=== PATIENT | female | born 1955 | race Caucasian/White ===

== ENCOUNTER 2020-12-16 06:01 | Day surgery (SDC) | payer BC, MEDICARE ==
[~2020-12-16] VITALS: Ht 162.6 cm; Wt 66.2 kg
[2020-12-16] MEDS ORDERED: methylPREDNISolone*ACETATE* 80 MG/ML ONE (06:54)
[2020-12-16] MEDS ORDERED: BUPIVACAINE/PF 0.5% ONE (06:54)
[2020-12-16] MEDS ORDERED: EPINEPHRINE 1 MG/ML, 1ML ONE (06:54)
[2020-12-16] MEDS ORDERED: EPINEPHRINE TOPICAL SOLN 1 MG/ML, 30ML ONE (06:54)
[2020-12-16] MEDS ORDERED: methylPREDNISolone *ACETATE* 40 MG/ML ONE (06:54)
[2020-12-16] MEDS ORDERED: EREN70AU IM (06:56)
[2020-12-16] MEDS ORDERED: TAMO10TA6 PO (06:56)
[2020-12-16] MEDS ORDERED: HYDR-3248 PO (06:56)
[2020-12-16] MEDS ORDERED: TRAZ-175 PO (06:56)
[2020-12-16] MEDS ORDERED: RIZA10TA20 PO (06:56)
[2020-12-16] MEDS ORDERED: GABA300S PO (06:56)
[2020-12-16] MEDS ORDERED: SERT50TA28 PO (06:59)
[2020-12-16] MEDS ORDERED: PLEASE ENTER ALLERGIES MC SCH (07:00)
[2020-12-16] MEDS ORDERED: CHLORHEXIDINE 15 ML UDC PO ONE (07:00)
[2020-12-16] MEDS ORDERED: PLEASE ENTER HEIGHT AND WEIGHT MC SCH (07:00)
[2020-12-16] MEDS ORDERED: VANCOMYCIN PMX 1GM/200ML 200 ML IV ONE (07:00)
[2020-12-16] MEDS ORDERED: VANCOMYCIN 1,000 MG in SODIUM CHLORIDE 0.9% 100 ML IV ONE (07:00)
[2020-12-16 07:05] VITALS: BP 131/88
[2020-12-16] MEDS ORDERED: LIDOCAINE-MPF 1%, 2ML ONE (07:22)
[2020-12-16] MEDS ORDERED: FENTANYL PF 250 MCG/5ML ONE (07:45)
[2020-12-16 07:47] LABS: BASOPHILS % (AUTO) 1 % (0-1); EOSINOPHILS % (AUTO) 4 % (1-7); HCT (SEDRATE) 40.5 % (34.6-47.8); LYMPHOCYTES % (AUTO) 32 % (22-44); MEAN CORPUSCULAR HEMOGLOBIN 30.9 pg (27.0-34.8); MEAN PLATELET VOLUME 9.5 fL (7.4-10.4); MONOCYTES % (AUTO) 14 % (2-9); NEUTROPHILS % (AUTO) 50 % (42-75); PLATELET COUNT 155 x10^3/uL (130-400); RED BLOOD COUNT 4.39 x10^6/uL (3.82-5.3); RED CELL DISTRIBUTION WIDTH 14.4 % (9.6-15.2)
[2020-12-16 07:55] LABS: ANION GAP 5 mmol/L (5-15); CALCIUM 8.8 mg/dL (8.5-10.1); CHLORIDE 113 mmol/L (98-107); CREATININE 0.76 mg/dL (0.55-1.02); INTERNATIONAL NORMALIZED RATIO 0.93 (0.93-1.1); PROTHROMBIN TIME 9.8 Seconds (9.6-11.5)
[2020-12-16] MEDS ORDERED: LIDOCAINE-MPF 1%, 2ML INFIL ONE (08:00)
[2020-12-16] MEDS ORDERED: LACTATED RINGERS 1,000 ML IV SCH (08:00)
[2020-12-16] MEDS ORDERED: PROPOFOL 50 ML ONE (08:32)
[2020-12-16] MEDS ORDERED: ACETAMINOPHEN 650 MG/20.3 ML UDC ONE (09:16)
[2020-12-16] MEDS ORDERED: FENTANYL PF 100 MCG/2ML ONE ×3 (09:16→09:59)
[2020-12-16] MEDS ORDERED: OXYcodone 5 MG/5 ML ORAL.SOL UDC ONE (09:16)
[2020-12-16] MEDS ORDERED: MEPERIDINE/PF 25MG/ML,1ML ONE (09:18)
[2020-12-16] MEDS: MEPERIDINE/PF 25MG/0.5ML IVPush PRN ×2 (09:19→09:30)
[2020-12-16] MEDS: FENTANYL PF 100 MCG/2ML IV PRN ×5 (09:25→10:00)
[2020-12-16] MEDS ORDERED: PROMETHAZINE 25 MG/ML, 1ML IVPush PRN (09:30)
[2020-12-16] MEDS ORDERED: OXYcodone/APAP 5/325MG TABLET PO PRN (09:30)
[2020-12-16] MEDS ORDERED: LABETALOL 5MG/ML, 20ML IV PRN (09:30)
[2020-12-16] MEDS ORDERED: METHOCARBAMOL 1,000 MG in DEXTROSE 5% 100 ML IV PRN (09:30)
[2020-12-16] MEDS ORDERED: OXYcodone 5 MG/5 ML ORAL.SOL UDC PO PRN (09:30)
[2020-12-16] MEDS ORDERED: hydrALAzine 20 MG/ML, 1ML IV PRN (09:30)
[2020-12-16] MEDS ORDERED: LORazepam 2 MG/ML, 1ML IVPush PRN (09:30)
[2020-12-16] MEDS ORDERED: EPHEDRINE 50 MG/ML, 1ML IVPush PRN (09:30)
[2020-12-16] MEDS ORDERED: ONDANSETRON 2MG/ML, 2ML IVPush PRN ×2 (09:30)
[2020-12-16] MEDS ORDERED: morphine SULFATE 10 MG/ML, 1ML IVPush PRN (09:30)
[2020-12-16] MEDS ORDERED: PROMETHAZINE 25 MG/ML, 1ML IM PRN (09:30)
[2020-12-16] MEDS ORDERED: ACETAMINOPHEN 325 MG TABLET PO PRN ×2 (09:30)
[2020-12-16] MEDS ORDERED: KETOROLAC 30 MG/1 ML IVPush SCH (09:30)
[2020-12-16] MEDS ORDERED: HYDROmorphone 2 MG/ML, 1ML ONE (10:26)
[2020-12-16] MEDS: HYDROmorphone 1 MG/ML, 1ML INJ IVPush PRN ×2 (10:28→11:20)
== END 2020-12-16 11:35 | disposition home or self-care (01) ==
LOC: OUT 06:01
PROVIDERS: ATTEND Orthopaedic Surgery Orthopaedic Surgery of the Spine
DX: S83.271A Complex tear of lateral meniscus, current injury, right knee, initial encounter (principal); M94.261 Chondromalacia, right knee; Z79.01 Long term (current) use of anticoagulants; Z79.899 Other long term (current) drug therapy; X58.XXXA Exposure to other specified factors, initial encounter; Y93.89 Activity, other specified; Y92.89 Other specified places as the place of occurrence of the external cause; Y99.8 Other external cause status
CPT/HCPCS: 29881; 36415; 71045; 80048; 83036; 85025; 85610; 85651; 85730; 93005; J0171; J1040; J1170; J2175; J2704; J3010; J3370; J7120; J1030